=== PATIENT | male | born 1985 | race Caucasian/White ===

== ENCOUNTER 2019-11-19 19:47 | Emergency (ER) | payer SELFPAY ==
[2019-11-19 20:06] VITALS: TEMP 97.5; O2SAT 98
[2019-11-19] MEDS ORDERED: SULFA/TRIMETH 800/160 (DS) TAB 1 EA TAB PO ONE (20:13)
--- NOTE | 2019-11-19 20:17 | ED.PDOC ---
History of Present Illness - General Chief Complaint: Laceration Stated Complaint: small laceration to left elbow Time Seen by Provider: 11/19/19 20:13 Source: patient Exam Limitations: no limitations - History of Present Illness Initial Comments: The patient is a 33-year-old male presented emergency room secondary to sustaining a 1.3 cm laceration to the lateral aspect of his left elbow while working today. The patient slipped and fell and rub it against some fiberglass. The laceration does go through the skin but does not impinge on any of the subcutaneous tissue. He is neurovascularly intact distally. This occurred about 4 hours prior to arrival. No other injuries. Timing/Duration: 1-3 hours Severity: mild Improving Factors: nothing Worsening Factors: nothing Associated Symptoms: denies symptoms Allergies/Adverse Reactions: Allergies NO KNOWN ALLERGY Allergy (Verified 11/19/19 20:08) Home Medications: Ambulatory Orders Lisdexamfetamine Dimesylate [Vyvanse] 50 mg PO DAILY 11/19/19 Sulfa/Trimeth 800/160 (Ds) Tab [Bactrim DS Tab] 1 ea PO DAILY #3 tab 11/19/19 Review of Systems - Review of Systems Constitutional: States: no symptoms reported EENTM: States: no symptoms reported Respiratory: States: no symptoms reported Cardiology: States: no symptoms reported Gastrointestinal/Abdominal: States: no symptoms reported Genitourinary: States: no symptoms reported Musculoskeletal: States: no symptoms reported Skin: States: see HPI Neurological: States: no symptoms reported Endocrine: States: no symptoms reported All other Systems: No Change from Baseline Past Medical History (General) - Patient Medical History Hx Seizures: No Hx Stroke: No Hx Dementia: No Hx Asthma: No Hx of COPD: No Hx Cardiac Disorders: No Hx Congestive Heart Failure: No Hx Pacemaker: No Hx Hypertension: No Hx Thyroid Disease: No Hx Diabetes: No Hx Gastroesophageal Reflux: No Hx Renal Disease: No Hx Cancer: No Hx of HIV: No Hx Hepatitis C: No Hx MRSA: No Surgical History: other - Vaccination History Hx Tetanus, Diphtheria Vaccination: Yes - Summer 2017 Hx Influenza Vaccination: Yes Hx Pneumococcal Vaccination: No - Social History Hx Tobacco Use: Yes Hx Chewing Tobacco Use: Yes Tins Per Day Chewed: 0.5 Hx Alcohol Use: No Hx Substance Use: No Hx Substance Use Treatment: No Hx Depression: No Feels Threatened In Home Enviroment: No Feels Threatened In a Relationship: No Hx Physical Abuse: No Hx Emotional Abuse: No Hx Suspected Abuse: No - Female History Patient is a Female of Child Bearing Age (10 -59 yrs old): No - Triage Comment ED Triage Comment: The patient had a 1 inch laceration to the outside of the left elbow with no active bleeding noted. He had no other complaints or obvious signs of injury noted. 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 Progress - Progress Progress: 11/19/19 20:15 The patient is a 33-year-old male presented emergency room secondary to a 1.3 cm laceration to the lateral aspect of his left elbow. Wound was cleaned with hydrogen peroxide and then irrigated with sterile saline. After risk and benefits of repair were explained patient agreed to proceed. 2 simple sutures of 4-0 Ethilon were used for reapproximation. Sutures can come out in around 10 days. Neosporin can be used topically along with a Band-Aid to protect the wound. ER warnings are given for any evidence of infection. The patient will be placed on 3 days of prophylactic Bactrim. Keep routine follow-up with primary care doctor otherwise. [email or web address] Departure - Departure Clinical Impression: Accidental laceration Disposition: Discharge to Home or Self Care Condition: Good Departure Forms: ED Discharge - Pt. Copy, Patient Portal Self Enrollment Instructions: DI for Laceration Repair, DI for Laceration Repair -- Simple Diet: regular diet Activity: increase activity as tolerated Prescriptions: Sulfa/Trimeth 800/160 (Ds) Tab [Bactrim DS Tab] 1 ea PO DAILY #3 tab Home Medications: Ambulatory Orders Lisdexamfetamine Dimesylate [Vyvanse] 50 mg PO DAILY 11/19/19 Sulfa/Trimeth 800/160 (Ds) Tab [Bactrim DS Tab] 1 ea PO DAILY #3 tab 11/19/19 Additional Instructions: The patient is a 33-year-old male presented emergency room secondary to a 1.3 cm laceration to the lateral aspect of his left elbow. Wound was cleaned with hydrogen peroxide and then irrigated with sterile saline. After risk and benefits of repair were explained patient agreed to proceed. 2 simple sutures of 4-0 Ethilon were used for reapproximation. Sutures can come out in around 10 days. Neosporin can be used topically along with a Band-Aid to protect the wound. ER warnings are given for any evidence of infection. The patient will be placed on 3 days of prophylactic Bactrim. Keep routine follow-up with primary care doctor otherwise.
[2019-11-19 20:34] VITALS: BP 119/75
== END 2019-11-19 20:34 | disposition home or self-care (01) ==
LOC: ER 19:47
DX: S51.012A Laceration without foreign body of left elbow, initial encounter (principal); F17.200 Nicotine dependence, unspecified, uncomplicated; W26.8XXA Contact with other sharp object(s), not elsewhere classified, initial encounter; Y92.9 Unspecified place or not applicable